=== PATIENT | female | born 1970 | race Hispanic/Latino ===

== ENCOUNTER → 2022-05-17 | Outpatient (CLI) | payer BC, OTHER ==
[~2022-05-17] MED LIST: IOHEXOL-350 75 ML VIAL IV ONE
== END | disposition home or self-care (01) ==
LOC: RAH 10:13
PROVIDERS: ATTEND Internal Medicine Gastroenterology
DX: I85.00 Esophageal varices without bleeding (principal); K74.3 Primary biliary cirrhosis; M47.815 Spondylosis without myelopathy or radiculopathy, thoracolumbar region; I86.8 Varicose veins of other specified sites; K44.9 Diaphragmatic hernia without obstruction or gangrene; K63.89 Other specified diseases of intestine; I70.0 Atherosclerosis of aorta; R16.2 Hepatomegaly with splenomegaly, not elsewhere classified
CPT/HCPCS: 74170; Q9967

== ENCOUNTER → 2022-07-12 | Outpatient (CLI) | payer BC | END | disposition home or self-care (01) | LOC: RAH 13:49 | PROVIDERS: ATTEND Internal Medicine | DX: R60.0 Localized edema (principal) | CPT/HCPCS: 93970 ==

== ENCOUNTER → 2022-09-20 | Outpatient (CLI) | payer BC ==
[~2022-09-20] MED LIST changes: +GADOTERATE MEGLUMINE 10 MMOL/20 ML VIAL IV ONE; -IOHEXOL-350 75 ML VIAL IV ONE
== END | disposition home or self-care (01) ==
LOC: RAH 08:29
PROVIDERS: ATTEND Internal Medicine Gastroenterology
DX: R16.2 Hepatomegaly with splenomegaly, not elsewhere classified (principal); R94.5 Abnormal results of liver function studies; R18.8 Other ascites; I86.8 Varicose veins of other specified sites
CPT/HCPCS: 74183; A9575; S8037

== ENCOUNTER → 2023-01-30 | Outpatient (CLI) | payer BC ==
[~2023-01-30] MED LIST changes: +FURO40TA5 PO; -GADOTERATE MEGLUMINE 10 MMOL/20 ML VIAL IV ONE; +LACT PO; +LEVO-70 PO; +Midodrine Hcl PO; +POTA-200 PO; +SPIR50TA5 PO; +URSO500T10 PO
== END | disposition home or self-care (01) ==
LOC: RAH 08:58
PROVIDERS: ATTEND Family Medicine
DX: J90 Pleural effusion, not elsewhere classified (principal); K74.3 Primary biliary cirrhosis; E78.00 Pure hypercholesterolemia, unspecified; D69.6 Thrombocytopenia, unspecified; E66.3 Overweight; Z79.01 Long term (current) use of anticoagulants; Z79.899 Other long term (current) drug therapy; Z68.26 Body mass index [BMI] 26.0-26.9, adult; Z80.8 Family history of malignant neoplasm of other organs or systems
CPT/HCPCS: 32555; 71045; C1729